=== PATIENT | female | born 1985 | race African-American/Black ===

== ENCOUNTER 2017-07-23 16:11 | Emergency (ER) | payer OTHER ==
[~2017-07-23] VITALS: Ht 165.1 cm; Wt 59.0 kg
[2017-07-23 16:19] VITALS: BP_SYST 128
--- NOTE | 2017-07-23 16:49 | NUR ---
BROUGHT BACK TO BED #2 AND REPORT GIVEN TO MY
[2017-07-23] MEDS ORDERED: NACL 0.9% 1,000 ML IV SCH (16:50)
--- NOTE | 2017-07-23 16:50 | NUR ---
Dr. Ortez at bedside for assess/eval
--- NOTE | 2017-07-23 17:05 | NUR ---
32year old female presented to ED with complaints of near syncope approximat 1h ago while at home; mother at bedside; recent change in diet; not caffeine/coffee for approximately and resumed caffeine consumption today; states she had similiar syncope episode approximately 2years ago which resolved on own without seeking medical attention; will continue to monitor
--- NOTE | 2017-07-23 17:25 | NUR ---
20g LFA PIV; good blood return noted; NS bolus started; urine sample collected and sent to lab
[2017-07-23 17:28] LABS: BASOPHILS # (AUTO) 0.1 K/uL (0.0-0.2); EOSINOPHILS # (AUTO) 0.2 K/uL (0.0-0.4)
[2017-07-23 17:46] LABS: EOSINOPHILS % (AUTO) 3.2 % (0.0-4.0); HEMATOCRIT 24.7 % (36-48); LYMPHOCYTES % (AUTO) 32.1 % (20.5-51.5); MEAN CORPUSCULAR HEMOGLOBIN 20 pg (27-31); MEAN CORPUSCULAR HGB CONC 30 % (32-36); MEAN CORPUSCULAR VOLUME 66 fL (79.0-98.0); MONOCYTES # (AUTO) 0.5 K/uL (0.0-1.0); MONOCYTES % (AUTO) 8.6 % (1.7-9.3); NEUTROPHILS # (AUTO) 3.3 K/uL (1.8-7.7); NEUTROPHILS % (AUTO) 54.1 % (40.0-70.0); PLATELET COUNT (AUTO) 109 K/uL (130-430); RED BLOOD CELL COUNT(AUTO) 3.76 MIL/uL (4.2-6.2); RED CELL DISTRIBUTION WIDTH 28.9 % (9.0-15.0); WHITE BLOOD COUNT (AUTO) 6.1 K/uL (4.8-10.8)
[2017-07-23 17:48] LABS: ANION GAP 5 (5-15); CALCIUM 8.8 mg/dL (8.4-11.0); CHLORIDE 107 mmol/L (98-107); CREATININE 0.74 mg/dL (0.55-1.30); GLUCOSE 96 mg/dL (70-99); POTASSIUM 3.7 mmol/L (3.5-5.1); SODIUM SERUM 139 mmol/L (136-145); UREA NITROGEN, BLOOD 9 mg/dL (8-21)
[2017-07-23 17:53] LABS: ALANINE AMINOTRANSFERASE 16 U/L (12-78); ASPARTATE AMINOTRANSFERASE 12 U/L (10-37); TOTAL BILIRUBIN 0.4 mg/dL (0.0-1.0)
[2017-07-23 17:55] LABS: ALCOHOL, BLOOD < 3 mg/dL (<10); GFR AFRICAN AMERICAN 117 mL/min (>90)
--- NOTE | 2017-07-23 17:55 | NUR ---
rcv critical lab from judi Smallwood H/H 7.4/24.2 via phon and read back; Dr. Ortez made aware
[2017-07-23 17:56] LABS: HEMOGLOBIN 7.4 g/dL (12.0-16.0)
[2017-07-23 17:57] LABS: ACETAMINOPHEN < 1 ug/mL (1-30)
[2017-07-23 18:02] LABS: BILIRUBIN,URINE NEGATIVE (NEGATIVE); BLOOD, URINE NEGATIVE (NEGATIVE); CLARITY/URINE HAZY (CLEAR); COLOR,URINE YELLOW (YELLOW); GLUCOSE,URINE NEGATIVE (NEGATIVE); KETONES,URINE NEGATIVE (NEGATIVE); LEUKOCYTE ESTERASE ,URINE TRACE (NEGATIVE); NITRITE, URINE NEGATIVE (NEGATIVE); PH,URINE 8.5 (5.0-8.0); PROTEIN URINE TRACE (NEGATIVE)
[2017-07-23 18:03] LABS: UROBILINOGEN,URINE 0.2 (0.2-1.0)
[2017-07-23 18:08] LABS: PROTHROMBIN TIME 10.6 SECS (9.5-12.5)
[2017-07-23 18:18] LABS: BARBITURATE, URINE NEGATIVE (NEG <=200); BENZODIAZEPINE, URINE NEGATIVE (NEG <=150); CANNABINOID, URINE NEGATIVE (NEG <=50); COCAINE, URINE NEGATIVE (NEG <=150); METHAMPHETAMINES SCREEN,URINE NEGATIVE (NEG <=500); OPIATE, URINE NEGATIVE (NEG <=100); PHENCYCLIDINE SCREEN,URINE NEGATIVE (NEG <=25); UR TRICYCLIC ANTIDEPRESSANTS NEGATIVE (NEG <=300); URINE AMPHETAMINE NEGATIVE (NEG <=500); URINE METHADONE NEGATIVE (NEG <=200); URINE OXYCODONE SCREEN NEGATIVE (NEG <=100); URINE PROPOXYPHENE SCREEN NEGATIVE (NEG <=300)
[2017-07-23 19:27] VITALS: BP_SYST 117
--- NOTE | 2017-07-23 19:27 | NUR ---
Patient given written and verbal discharge instructions and verbalizes understanding. ER MD discussed with patient the results and treatment provided. Patient in stable condition. ID arm band removed. IV catheter removed intact and dressing applied, no active bleeding. Rx of Iron with vitamin c given. Patient educated on pain management and to follow up with PMD. Pain Scale 0/10. Opportunity for questions provided and answered.
[2017-07-23 20:34] LABS: BACTERIA,URINE MODERATE /HPF (None Seen); RBC,URINE 0-3 /HPF (0-3)
[2017-07-23 20:35] LABS: MUCUS,URINE 1+ /LPF (None Seen)
== END 2017-07-23 19:27 | disposition home or self-care (01) ==
LOC: SED 16:11
DX: R55 Syncope and collapse (principal)
CPT/HCPCS: 36415; 80053; 80307; 81000; 81003; 82550; 84484; 85025; 85610; 85730; 87086; 93005; 96360; 99285; G0480; G0481; G0482; J7030

== ENCOUNTER 2021-05-11 22:22 | Inpatient (IN) | payer OTHER, SELFPAY ==
[~2021-05-11] VITALS: Ht 165.1 cm; Wt 63.0 kg
[2021-05-11 22:50] VITALS: BP_SYST 128
[2021-05-12] MEDS ORDERED: NACL 0.9% 1,000 ML IV ONE
[2021-05-12 00:18] LABS: BASOPHILS # (AUTO) 0.1 K/uL (0.0-0.2); BASOPHILS % (AUTO) 1.1 % (0.0-2.0); EOSINOPHILS # (AUTO) 0.1 K/uL (0.0-0.4); EOSINOPHILS % (AUTO) 0.9 % (0.0-4.0); LYMPHOCYTES # (AUTO) 1.1 K/uL (1.0-5.5); LYMPHOCYTES % (AUTO) 11.1 % (20.5-51.5); MEAN CORPUSCULAR HEMOGLOBIN 16 pg (27-31); MEAN CORPUSCULAR HGB CONC 27 % (32-36); MEAN CORPUSCULAR VOLUME 59 fL (79.0-98.0); MONOCYTES # (AUTO) 0.5 K/uL (0.0-1.0); MONOCYTES % (AUTO) 5.2 % (1.7-9.3); NEUTROPHILS # (AUTO) 8.3 K/uL (1.8-7.7); NEUTROPHILS % (AUTO) 81.7 % (40.0-70.0); PLATELET COUNT (AUTO) 115 K/uL (130-430); RED BLOOD CELL COUNT(AUTO) 2.27 MIL/uL (4.2-6.2); RED CELL DISTRIBUTION WIDTH 45.7 % (9.0-15.0); WHITE BLOOD COUNT (AUTO) 10.2 K/uL (4.8-10.8)
[2021-05-12 00:26] LABS: BILIRUBIN,URINE NEGATIVE (NEGATIVE); BLOOD, URINE 3+ (NEGATIVE); CLARITY/URINE SL CLOUDY (CLEAR); COLOR,URINE YELLOW (YELLOW); GLUCOSE,URINE NEGATIVE (NEGATIVE); KETONES,URINE NEGATIVE (NEGATIVE); LEUKOCYTE ESTERASE ,URINE NEGATIVE (NEGATIVE); NITRITE, URINE NEGATIVE (NEGATIVE); PROTEIN URINE TRACE (NEGATIVE); UROBILINOGEN,URINE 0.2 (0.2-1.0)
[2021-05-12 00:28] LABS: HEMATOCRIT 13.4 % (36-48); HEMOGLOBIN 3.6 g/dL (12.0-16.0)
[2021-05-12 00:29] LABS: CALCIUM 8.1 mg/dL (8.4-11.0); CREATININE 0.8 mg/dL (0.55-1.30)
[2021-05-12 00:34] LABS: ALBUMIN 3.8 g/dL (3.4-4.8); TOTAL BILIRUBIN 0.7 mg/dL (0.0-1.0)
[2021-05-12 00:39] LABS: POTASSIUM 2.8 mmol/L (3.5-5.1)
[2021-05-12] MEDS ORDERED: POTASSIUM CHLORIDE 10 MEQ TAB.PRT.SR PO ONE (01:15)
[2021-05-12] MEDS ORDERED: POTASSIUM CHLORIDE 20 MEQ/PKT PACKET ONE (01:24)
[2021-05-12 01:43] LABS: BACTERIA,URINE FEW /HPF (None Seen); RBC,URINE 20-50 /HPF (0-3); WBC,URINE 0-3 /HPF (0-3)
[2021-05-12 04:39] VITALS: BP_SYST 105
[2021-05-12] MEDS ORDERED: POTASSIUM CHLORIDE 20 MEQ TAB.PRT.SR PO PRN (08:00)
[2021-05-12] MEDS ORDERED: DOCUSATE SODIUM 100 MG CAPSULE PO PRN (08:00)
[2021-05-12] MEDS ORDERED: ZOLPIDEM TARTRATE 5 MG TABLET PO PRN (08:00)
[2021-05-12] MEDS ORDERED: MORPHINE 2 MG/ML INJ. SYRINGE IVP PRN ×2 (08:00)
[2021-05-12] MEDS ORDERED: LORazepam 2 MG/ML VIAL IVP PRN (08:00)
[2021-05-12] MEDS ORDERED: NALOXONE HCL 0.4 MG/ML AMP (NARCAN) IVP PRN ×2 (08:00)
[2021-05-12] MEDS ORDERED: MAGNESIUM SULFATE 50 ML IV PRN (08:00)
[2021-05-12] MEDS ORDERED: MUPIROCIN 2% TOPICAL OINTMENT 22 GM NS PRN (08:00)
[2021-05-12] MEDS ORDERED: ONDANSETRON HCL 4 MG/2 ML VIAL IVP PRN (08:00)
[2021-05-12] MEDS ORDERED: ACETAMINOPHEN 325 MG TABLET PO PRN (08:00)
[2021-05-12] MEDS ORDERED: FERROUS SULFATE 325 MG TABLET.DR PO ONE (09:00)
[2021-05-12 11:15] LABS: HCG,QUAL RESULT NEGATIVE (NEGATIVE)
[2021-05-12 11:28] LABS: BASOPHILS # (AUTO) 0.1 K/uL (0.0-0.2); BASOPHILS % (AUTO) 1.8 % (0.0-2.0); EOSINOPHILS % (AUTO) 0.6 % (0.0-4.0); HEMATOCRIT 22.3 % (36-48); LYMPHOCYTES # (AUTO) 1.5 K/uL (1.0-5.5); LYMPHOCYTES % (AUTO) 18.4 % (20.5-51.5); MEAN CORPUSCULAR HEMOGLOBIN 21 pg (27-31); MEAN CORPUSCULAR HGB CONC 31 % (32-36); MEAN CORPUSCULAR VOLUME 70 fL (79.0-98.0); MONOCYTES # (AUTO) 0.5 K/uL (0.0-1.0); MONOCYTES % (AUTO) 6.7 % (1.7-9.3); NEUTROPHILS # (AUTO) 5.8 K/uL (1.8-7.7); NEUTROPHILS % (AUTO) 72.5 % (40.0-70.0); PLATELET COUNT (AUTO) 129 K/uL (130-430); RED BLOOD CELL COUNT(AUTO) 3.21 MIL/uL (4.2-6.2); RED CELL DISTRIBUTION WIDTH 40.4 % (9.0-15.0)
[2021-05-12 11:32] LABS: HEMOGLOBIN 6.8 g/dL (12.0-16.0)
[2021-05-12 11:56] LABS: CALCIUM 8.3 mg/dL (8.4-11.0); CREATININE 0.67 mg/dL (0.55-1.30); POTASSIUM 3.4 mmol/L (3.5-5.1); THYROID STIMULATING HORMONE 1.06 uIu/mL (0.36-3.74)
[2021-05-12] MEDS ORDERED: POTASSIUM CHLORIDE 20 MEQ/PKT PACKET PO ONE (12:30)
[2021-05-12 12:35] VITALS: BP_SYST 102
[2021-05-12 13:11] LABS: TOTAL IRON BIND. CAPACITY 437 ug/dL (250-450)
[2021-05-12 16:55] VITALS: BP_SYST 103
[2021-05-12 17:32] LABS: BASOPHILS # (AUTO) 0.1 K/uL (0.0-0.2); BASOPHILS % (AUTO) 0.5 % (0.0-2.0); EOSINOPHILS # (AUTO) 0.1 K/uL (0.0-0.4); EOSINOPHILS % (AUTO) 0.6 % (0.0-4.0); HEMATOCRIT 25.9 % (36-48); HEMOGLOBIN 8.1 g/dL (12.0-16.0); LYMPHOCYTES # (AUTO) 1.2 K/uL (1.0-5.5); LYMPHOCYTES % (AUTO) 11.9 % (20.5-51.5); MEAN CORPUSCULAR HEMOGLOBIN 23 pg (27-31); MEAN CORPUSCULAR HGB CONC 31 % (32-36); MEAN CORPUSCULAR VOLUME 72 fL (79.0-98.0); MONOCYTES # (AUTO) 0.8 K/uL (0.0-1.0); MONOCYTES % (AUTO) 8.2 % (1.7-9.3); NEUTROPHILS # (AUTO) 7.9 K/uL (1.8-7.7); NEUTROPHILS % (AUTO) 78.8 % (40.0-70.0); PLATELET COUNT (AUTO) 140 K/uL (130-430); RED BLOOD CELL COUNT(AUTO) 3.58 MIL/uL (4.2-6.2); RED CELL DISTRIBUTION WIDTH 38.6 % (9.0-15.0); WHITE BLOOD COUNT (AUTO) 10.1 K/uL (4.8-10.8)
[2021-05-12] MEDS ORDERED: FERR-31 PO (17:58)
[2021-05-12 18:03] VITALS: BP_SYST 105
[2021-05-12] MEDS ORDERED: FERROUS SULFATE 325 MG TABLET.DR PO SCH (21:00)
[2021-05-13 10:06] LABS: FOLATE (FOLIC ACID) 12.1 ng/mL (>3.0)
== END 2021-05-12 18:35 | disposition home or self-care (01) | DRG 761 ==
LOC: SED 22:22 → STU 05-12 01:45
PROVIDERS: ADMIT General Practice; ATTEND General Practice
PROC: 30233N1 Transfusion of Nonautologous Red Blood Cells into Peripheral Vein, Percutaneous Approach (ICD-10-PCS; principal; 2021-05-12)
DX: D25.9 Leiomyoma of uterus, unspecified (principal); E87.6 Hypokalemia; D63.8 Anemia in other chronic diseases classified elsewhere; G43.909 Migraine, unspecified, not intractable, without status migrainosus; D50.0 Iron deficiency anemia secondary to blood loss (chronic); N92.0 Excessive and frequent menstruation with regular cycle; Z20.822 Contact with and (suspected) exposure to COVID-19
CPT/HCPCS: 36415; 36430; 71045; 80048; 80053; 81000; 82607; 82728; 82746; 83036; 83540; 83550; 83735; 84443; 84703; 85025; 85610-TC; 86886; 86900; 86901; 86920; 93005; 96360; 96361; 99291; G0378; J2270; J2405; P9021

== ENCOUNTER 2022-01-02 17:34 | Emergency (ER) | payer OTHER ==
[~2022-01-02] VITALS: Ht 165.1 cm; Wt 62.6 kg
[~2022-01-02 17:34] MED LIST: FERR-31 PO
--- NOTE | 2022-01-02 17:43 | NUR ---
Patient triaged and placed in waiting room. VSS and patient appears in no acute distress at this time. Accompanied by self , awaiting available bed, and MD notified of need for MSE.
[2022-01-02 17:44] VITALS: BP_SYST 128
--- NOTE | 2022-01-02 17:45 | NUR ---
Pt brought by self, A&Ox4, pt presents to ER with discomfort on the throat after eating chiken, skin pink and warm, cap refill <3, VSS, respirations even and unlabored.
--- NOTE | 2022-01-02 18:20 | NUR ---
Dr Cole evaluating patient at bedside
[2022-01-02 19:06] VITALS: BP_SYST 128
--- NOTE | 2022-01-02 19:17 | NUR ---
Patient given written and verbal discharge instructions and verbalizes understanding. ER MD discussed with patient the results and treatment provided. Patient in stable condition. ID arm band removed. No Rx given. Patient educated on pain management and to follow up with PMD. Pain Scale 0/10. Opportunity for questions provided and answered. Medication side effect fact sheet provided.
== END 2022-01-02 19:17 | disposition home or self-care (01) ==
LOC: SED 17:34
DX: R13.10 Dysphagia, unspecified (principal); Z79.899 Other long term (current) drug therapy
CPT/HCPCS: 99283

== ENCOUNTER 2022-12-02 17:08 | Inpatient (IN) | payer OTHER ==
[~2022-12-02] VITALS: Ht 165.1 cm; Wt 66.2 kg
[2022-12-02 18:31] VITALS: BP_SYST 133
[2022-12-02] MEDS ORDERED: NACL 0.9% 1,000 ML IV ONE ×2 (18:45→20:15)
[2022-12-02] MEDS ORDERED: fentaNYL CITRATE/PF 100 MCG/2 ML AMP IVP ONE (18:45)
[2022-12-02 18:51] LABS: BILIRUBIN,URINE NEGATIVE (NEGATIVE); BLOOD, URINE 3+ (NEGATIVE); CLARITY/URINE CLEAR (CLEAR); COLOR,URINE YELLOW (YELLOW); GLUCOSE,URINE NEGATIVE (NEGATIVE); KETONES,URINE TRACE (NEGATIVE); LEUKOCYTE ESTERASE ,URINE NEGATIVE (NEGATIVE); NITRITE, URINE NEGATIVE (NEGATIVE); PROTEIN URINE NEGATIVE (NEGATIVE); UROBILINOGEN,URINE 0.2 (0.2-1.0)
[2022-12-02 18:57] LABS: WBC,URINE 0-3 /HPF (0-3)
[2022-12-02 18:58] LABS: BACTERIA,URINE FEW /HPF (None Seen); MUCUS,URINE None Seen /LPF (None Seen)
[2022-12-02 19:23] LABS: BASOPHILS # (AUTO) 0.1 K/uL (0.0-0.2); EOSINOPHILS # (AUTO) 0.1 K/uL (0.0-0.4); EOSINOPHILS % (AUTO) 1.2 % (0.0-4.0); LYMPHOCYTES # (AUTO) 1.2 K/uL (1.0-5.5); LYMPHOCYTES % (AUTO) 10.8 % (20.5-51.5); MEAN CORPUSCULAR HEMOGLOBIN 20 pg (27-31); MEAN CORPUSCULAR HGB CONC 31 % (32-36); MEAN CORPUSCULAR VOLUME 64 fL (79.0-98.0); MONOCYTES # (AUTO) 0.7 K/uL (0.0-1.0); MONOCYTES % (AUTO) 6.8 % (1.7-9.3); NEUTROPHILS # (AUTO) 8.8 K/uL (1.8-7.7); NEUTROPHILS % (AUTO) 80.2 % (40.0-70.0); PLATELET COUNT (AUTO) 113 K/uL (130-430); RED BLOOD CELL COUNT(AUTO) 3.27 MIL/uL (4.2-6.2); RED CELL DISTRIBUTION WIDTH 31.2 % (9.0-15.0)
[2022-12-02 19:32] LABS: CALCIUM 8.3 mg/dL (8.4-11.0); CREATININE 1.26 mg/dL (0.55-1.30)
[2022-12-02 19:37] LABS: ALBUMIN 3.8 g/dL (3.4-4.8); TOTAL BILIRUBIN 0.6 mg/dL (0.0-1.0)
[2022-12-02 19:44] LABS: HEMOGLOBIN 6.5 g/dL (12.0-16.0)
[2022-12-02 23:04] VITALS: BP_SYST 118
[2022-12-03 01:00] VITALS: BP_SYST 102
[2022-12-03] MEDS ORDERED: ACETAMINOPHEN 325 MG TABLET PO PRN (07:00)
[2022-12-03 08:05] VITALS: BP_SYST 100
[2022-12-03 09:36] LABS: BASOPHILS # (AUTO) 0.1 K/uL (0.0-0.2); BASOPHILS % (AUTO) 1.2 % (0.0-2.0); EOSINOPHILS # (AUTO) 0.1 K/uL (0.0-0.4); EOSINOPHILS % (AUTO) 1.5 % (0.0-4.0); HEMATOCRIT 25.6 % (36-48); LYMPHOCYTES # (AUTO) 1.4 K/uL (1.0-5.5); LYMPHOCYTES % (AUTO) 15.2 % (20.5-51.5); MEAN CORPUSCULAR HEMOGLOBIN 22 pg (27-31); MEAN CORPUSCULAR HGB CONC 33 % (32-36); MEAN CORPUSCULAR VOLUME 68 fL (79.0-98.0); MONOCYTES # (AUTO) 0.6 K/uL (0.0-1.0); MONOCYTES % (AUTO) 6.7 % (1.7-9.3); NEUTROPHILS # (AUTO) 6.8 K/uL (1.8-7.7); NEUTROPHILS % (AUTO) 75.4 % (40.0-70.0); PLATELET COUNT (AUTO) 122 K/uL (130-430); RED BLOOD CELL COUNT(AUTO) 3.77 MIL/uL (4.2-6.2); RED CELL DISTRIBUTION WIDTH 31.5 % (9.0-15.0)
[2022-12-03 10:12] LABS: HEMOGLOBIN 8.3 g/dL (12.0-16.0)
[2022-12-03 10:25] LABS: ALBUMIN 3.3 g/dL (3.4-4.8); CALCIUM 7.9 mg/dL (8.4-11.0); CREATININE 0.82 mg/dL (0.55-1.30); THYROID STIMULATING HORMONE 0.71 uIu/mL (0.34-4.82); TOTAL BILIRUBIN 1.6 mg/dL (0.0-1.0)
[2022-12-03] MEDS: cefTRIAXone 1 GM in D5W 50 ML IV SCH (12:37)
[2022-12-03] MEDS: NACL 0.9% 1,000 ML IV SCH ×2 (12:41→21:15)
[2022-12-03 12:42] VITALS: BP_SYST 101
[2022-12-03 16:00] VITALS: BP_SYST 99
[2022-12-03 18:48] LABS: BILIRUBIN,URINE NEGATIVE (NEGATIVE); BLOOD, URINE 2+ (NEGATIVE); COLOR,URINE YELLOW (YELLOW); GLUCOSE,URINE NEGATIVE (NEGATIVE); KETONES,URINE NEGATIVE (NEGATIVE); LEUKOCYTE ESTERASE ,URINE TRACE (NEGATIVE); NITRITE, URINE NEGATIVE (NEGATIVE); PH,URINE 7.5 (5.0-8.0); PROTEIN URINE NEGATIVE (NEGATIVE); UROBILINOGEN,URINE 0.2 (0.2-1.0)
[2022-12-03 18:59] LABS: CLARITY/URINE SLIGHTLY HAZY (CLEAR)
[2022-12-03 19:05] LABS: BACTERIA,URINE FEW /HPF (None Seen); MUCUS,URINE None Seen /LPF (None Seen)
[2022-12-04] MEDS: NACL 0.9% 1,000 ML IV SCH (04:24)
[2022-12-04 06:28] LABS: BASOPHILS # (AUTO) 0.1 K/uL (0.0-0.2); BASOPHILS % (AUTO) 1.4 % (0.0-2.0); EOSINOPHILS # (AUTO) 0.2 K/uL (0.0-0.4); EOSINOPHILS % (AUTO) 3.4 % (0.0-4.0); HEMATOCRIT 23.5 % (36-48); HEMOGLOBIN 7.5 g/dL (12.0-16.0); LYMPHOCYTES # (AUTO) 1.5 K/uL (1.0-5.5); LYMPHOCYTES % (AUTO) 21.7 % (20.5-51.5); MEAN CORPUSCULAR HEMOGLOBIN 22 pg (27-31); MEAN CORPUSCULAR HGB CONC 32 % (32-36); MEAN CORPUSCULAR VOLUME 68 fL (79.0-98.0); MONOCYTES # (AUTO) 0.6 K/uL (0.0-1.0); MONOCYTES % (AUTO) 8.2 % (1.7-9.3); NEUTROPHILS # (AUTO) 4.6 K/uL (1.8-7.7); NEUTROPHILS % (AUTO) 65.3 % (40.0-70.0); PLATELET COUNT (AUTO) 163 K/uL (130-430); RED BLOOD CELL COUNT(AUTO) 3.46 MIL/uL (4.2-6.2); RED CELL DISTRIBUTION WIDTH 31.4 % (9.0-15.0); RETICULOCYTE COUNT 1.5 % (0.5-1.5); WHITE BLOOD COUNT (AUTO) 7.1 K/uL (4.8-10.8)
[2022-12-04 07:03] LABS: CALCIUM 7.7 mg/dL (8.4-11.0); CREATININE 0.62 mg/dL (0.55-1.30)
[2022-12-04 08:00] VITALS: BP_SYST 120
[2022-12-04] MEDS ORDERED: TAMSULOSIN HCL 0.4 MG CAP PO SCH (09:00)
[2022-12-04 12:06] VITALS: BP_SYST 115
[2022-12-04] MEDS: cefTRIAXone 1 GM in D5W 50 ML IV SCH (12:32)
[2022-12-04] MEDS ORDERED: TAMS0.4C96 PO (12:42)
[2022-12-04] MEDS ORDERED: IBUP-1968 PO (12:42)
[2022-12-04] MEDS ORDERED: NITR-85 PO (12:42)
[2022-12-04] MEDS ORDERED: ACET325T PO (12:42)
[2022-12-04 19:27] LABS: TOTAL IRON BIND. CAPACITY 290 ug/dL (250-450)
[2022-12-05 05:06] LABS: FOLATE (FOLIC ACID) 8.4 ng/mL (>3.0)
== END 2022-12-04 13:30 | disposition home or self-care (01) | DRG 694 ==
LOC: SED 17:08 → SMU 20:14
PROVIDERS: ADMIT Internal Medicine; ATTEND Internal Medicine
PROC: 30233N1 Transfusion of Nonautologous Red Blood Cells into Peripheral Vein, Percutaneous Approach (ICD-10-PCS; principal; 2022-12-03)
DX: N20.1 Calculus of ureter (principal); E44.0 Moderate protein-calorie malnutrition; D64.9 Anemia, unspecified; D72.829 Elevated white blood cell count, unspecified; G43.909 Migraine, unspecified, not intractable, without status migrainosus; Z68.24 Body mass index [BMI] 24.0-24.9, adult
CPT/HCPCS: 36415; 76376; 80048; 80053; 81000; 82272; 82607; 82728; 82746; 83540; 83550; 83690; 84443; 85025; 85044; 86886; 86900; 86901; 86920; 87086; 96361; 96374; 99285; J0696; J3010; J7060; P9021